=== PATIENT | male | born 1955 | race Caucasian/White ===

== ENCOUNTER → 2022-09-06 | Outpatient (CLI) | payer MEDICARE ==
[2022-09-06 18:31] LABS: African American GFR (CKD) >90 (>60 ml/min/1.73 sqM); Blood Urea Nitrogen 15 mg/dL (9-20); Non-African American GFR(CKD) >90 (>60 ml/min/1.73 sqM)
--- NOTE | 2022-09-07 08:36 | CT ---
EXAMINATION TYPE: CT abdomen wo/w con CT DLP: 969.6 mGycm, Automated exposure control for dose reduction was used. DATE OF EXAM: 09/06/2022 7:02 PM COMPARISON: None. CLINICAL INDICATION:Male, 66 years old with history of D41.12 left renal mass, D49.59 mass gu organ; left renal mass TECHNIQUE: Axial CT of the abdomen and pelvis. Sagittal and coronal reformats were created on a [employer] workstation. Contrast used:100ML mL of Isovue 300 with IV Contrast, Oral contrast used: with Oral Contrast FINDINGS: LOWER CHEST: Unremarkable ABDOMEN LIVER: Unremarkable GALLBLADDER AND BILE DUCTS: Unremarkable cholelithiasis. PANCREAS: Unremarkable. SPLEEN: Unremarkable. ADRENAL GLANDS: Unremarkable. KIDNEYS AND URETERS: The right kidney is without evidence for hydronephrosis, renal calculus or mass. The left kidney demonstrates a heterogenous enhancing mass measuring 2.6 x 2.3 x 2.3 cm which is less than 50% exophytic less approximate 8 mm from the renal calyx and the anterior location above the pl eural line. Note is made of the left kidney superior pole is rotated anteriorly due to the large jb l cyst measuring up to 14.6 x 11.9 cm with mural enhancing soft tissue measuring 6 mm superiorly. The re is no evidence of hydronephrosis or renal calculus. STOMACH AND BOWEL: No evidence of bowel obstruction. PERITONEUM: No evidence of pneumoperitoneum or free fluid. VASCULATURE: No evidence of aortic aneurysm. Atherosclerosis of the arterial vasculature. MUSCULOSKELETAL: No acute osseous abnormalities LYMPH NODES: No gross evidence for lymphadenopathy. SOFT TISSUE/ABDOMINAL WALL: Unremarkable IMPRESSION: 1. Left superior pole 2.6 cm renal cortical mass concerning for renal cell carcinoma until proven ot victorina. RENAL Nephrometry Score: 5a. 2. Left large renal cyst measuring up to 14.6 cm with 6 mm soft tissue enhancing nodule. Findings co ncerning for neoplasm until proven otherwise. Attention on follow-up imaging.
== END | disposition home or self-care (01) ==
LOC: RADCTMAIN 17:45
PROVIDERS: ATTEND Urology
DX: D41.12 Neoplasm of uncertain behavior of left renal pelvis (principal); N28.1 Cyst of kidney, acquired
CPT/HCPCS: 82565; 84520; 74170; 36415; Q9967 ×2

== ENCOUNTER → 2022-10-08 | Outpatient (CLI) | payer MEDICARE ==
--- NOTE | 2022-10-08 16:26 | MR ---
EXAMINATION TYPE: MR kidney wo/w con DATE OF EXAM: 10/08/2022 COMPARISON: CT abdomen and pelvis September 06, 2022 HISTORY: Left renal mass. Abnormal CT. CONTRAST: Standard multiplanar, multisequence MRI departmental protocol images were obtained without contrast a nd with 7.5ml mL intravenous Gadavist gadolinium contrast. FINDINGS: Kidneys: Corresponding with most recent CT right kidney shows no worrisome solid or cystic mass. No r ight-sided hydronephrosis. Left kidney redemonstrates large exophytic thin-walled cyst anteriorly fro m the mid to lower pole level extending inferiorly measuring 13.7 x 13.1 x 11.1 cm axial image 33 and coronal image 18. Chest superior to this in the anterior portion of the upper pole left kidney there is ball-shaped partially exophytic 2.0 cm mass of slight T1 hypointensity and slight T2 hyperintensi ty showing heterogeneous postcontrast enhancement worrisome for focal renal cell carcinoma. More conv incing on CT with washout versus remainder of kidney noted. Patent left renal artery is seen. Patent draining renal vein into the IVC is noted. No suspicious local adenopathy. Other: Slight low dense thickening to the left adrenal gland with signal dropout consistent with gal ign lipid rich hyperplasia. Signal dropout in the liver consistent with fatty infiltrative hepatocell ular disease. Tiny dependent gallstone redemonstrated. Spleen and pancreas are normal in size. No abn ormal bowel dilatation. Diverticula in the left and sigmoid colon. Disc space narrowing with endplate changes and spurring at the lumbosacral junction. IMPRESSION: Confirmation of round small slightly exophytic enhancing mass from the anterior portion upper pole le ft kidney worrisome for focal renal cell carcinoma. Advise surgical referral. Consider ablation refer ral due to smaller size and peripheral location.
== END | disposition home or self-care (01) ==
LOC: RADMRIMAIN 13:54
PROVIDERS: ATTEND Urology
DX: D41.02 Neoplasm of uncertain behavior of left kidney (principal)
CPT/HCPCS: 74183; A9585

== ENCOUNTER 2023-01-10 05:34 | Day surgery (SDC) | payer MEDICARE ==
[2023-01-03 12:57] VITALS: BMI 26.1
--- NOTE | 2023-01-08 08:12 | P.HPIHPCON ---
History of Present Illness H&P Date: 01/08/23 Chief Complaint: Left renal mass, left renal cyst This is a 67-year-old male with history of a 2.3 cm left-sided renal mass, 14 cm left-sided. He is having intermittent left flank pain. I reviewed the images with him in detail. Discussed with him mass is concerning for focal renal cell carcinoma. Discussed the large cyst could be contributing to his left flank pain. Option of robotic left partial nephrectomy with cyst decortication was discussed with him in detail. Risk of bleeding, infection, potential conversion to a radical nephrectomy was discussed with him. Discussed risk of injury to nearby organs which includes but not limited to the spleen, pancreas, bowel. Discussed also the potential of cancer recurrence. Discussed with him if there is conversion to radical nephrectomy there is potential of end-stage renal disease and the requirement of short long-term hemodialysis. Risk of anesthesia was also discussed with him in detail Consent for Procedure: I have explained the operation/procedure to the patient, including the risks, benefits, side effects, alternative therapies (including not receiving the proposed treatment or service), the likelihood of the patient achieving his/her goals, and potential recuperation problems for the procedure/sedation/analgesia, as well as any blood products, if indicated. I also explained to the patient the risks, benefits and side effects of the alternatives, as well as the risks related to not receiving the proposed procedure, care, treatment, or services. 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 History of Any Multi-Drug Resistant Organisms: None Reported Past Surgical History: Hernia Repair Past Anesthesia/Blood Transfusion Reactions: No Reported Reaction Past Psychological History: No Psychological Hx Reported Smoking Status: Current every day smoker Past Alcohol Use History: Occasional Additional Past Alcohol Use History / Comment(s): PT IS A RECOVERING ALCOHOLIC, STATES HE DOES OCCASIONALLY RELAPSE Past Drug Use History: None Reported - Past Family History Mother Family Medical History: Coronary Artery Disease (CAD), CVA/TIA, Myocardial Infarction ([place]) Father Family Medical History: Coronary Artery Disease (CAD), CVA/TIA, Myocardial Infarction ([place]) Medications and Allergies Home Medications Medication Instructions Recorded Confirmed Type lisinopriL [Zestril] 10 mg PO BID 03/09/23 03/09/23 History Allergies Allergy/AdvReac Type Severity Reaction Status Date / Time No Known Allergies Allergy Verified 01/03/23 12:23 Surgical - Exam - General no distress, no pain - ENT normal nares, normal mucosa - Respiratory normal expansion, normal respiratory effort - Abdomen Abdomen: soft, non tender Assessment and Plan Assessment: OR for left robotic partial nephrectomy, with cyst decortication
[2023-01-10] MEDS ORDERED: HYDROmorphone 0.5 MG/0.5 ML SYRINGE IVP PRN (06:04)
[2023-01-10] MEDS ORDERED: ONDANSETRON 4 MG/2 ML VIAL IVP ONE (06:04)
[2023-01-10] MEDS ORDERED: MIDAZOLAM 2 MG/2 ML VIAL IV PRN (06:04)
[2023-01-10] MEDS ORDERED: DEXAMETHASONE SOD PHOSPHATE 4 MG/ML 1 ML VIAL IV ONE (06:04)
[2023-01-10] MEDS ORDERED: LIDOCAINE 1% (10MG/ML) FOR IV START INTRADERMA PRN (06:04)
[2023-01-10] MEDS: LACTATED RINGERS 1,000 ML IV SCH ×2 (06:30→12:48)
[2023-01-10] MEDS ORDERED: fentaNYL (PF) 50 MCG/1 ML VIAL IV ONE (07:14)
[2023-01-10] MEDS ORDERED: MIDAZOLAM 2 MG/2 ML VIAL IV ONE (07:14)
[2023-01-10] MEDS ORDERED: MIDAZOLAM 2 MG/2 ML VIAL ONE (07:35)
[2023-01-10] MEDS ORDERED: ROPIVACAINE 5 MG/ML 30 ML VIAL ONE (07:35)
[2023-01-10] MEDS ORDERED: fentaNYL (PF) 50 MCG/ML 2 ML AMP ONE (07:35)
[2023-01-10] MEDS ORDERED: SODIUM CHLORIDE 0.9% 100 ML BAG ONE (07:35)
[2023-01-10] MEDS ORDERED: LIDOCAINE 2% INJ 20 MG/ML (2 ML VIAL) ONE (07:35)
[2023-01-10] MEDS ORDERED: SODIUM CHLORIDE 0.9% (PF) 10 ML VIAL ONE (07:35)
[2023-01-10] MEDS ORDERED: MANNITOL 25% 12.5 GM/50 ML VIAL ONE (07:35)
[2023-01-10] MEDS ORDERED: HYDROmorphone (PF) 1 MG/ML ONE (07:35)
[2023-01-10] MEDS ORDERED: SUCCINYLCHOLINE CHLORIDE 200 MG/10 ML VIAL IV ONE (07:35)
[2023-01-10] MEDS ORDERED: ROCURONIUM 10 MG/ML (5 ML VIAL) IV ONE (07:35)
[2023-01-10] MEDS ORDERED: NEOSTIGMINE 1 MG/ML 10 ML VIAL ONE (07:35)
[2023-01-10] MEDS ORDERED: PROPOFOL 10 MG/ML 20 ML VIAL IV ONE (07:35)
[2023-01-10] MEDS ORDERED: PHENYLEPHRINE-0.9% NACL SYG 1,000 MCG/10 ML SYRINGE ONE (07:35)
[2023-01-10] MEDS ORDERED: ceFAZolin 1,000 MG VIAL ONE (07:35)
[2023-01-10] MEDS ORDERED: GLYCOPYRROLATE 0.2 MG/ML 2 ML VIAL ONE (07:35)
[2023-01-10] MEDS ORDERED: HYDROmorphone 1 MG/ML 1 ML SYRINGE IVP PRN (07:56)
[2023-01-10] MEDS ORDERED: HEPARIN SODIUM,PORCINE/PF 5,000 UNIT/0.5 ML SYRINGE SQ SCH (08:00)
[2023-01-10] MEDS ORDERED: BUPIVACAINE (PF) 0.5% 30 ML VIAL SQ ONE ×2 (08:55→12:08)
--- NOTE | 2023-01-10 10:27 | P.ANPRN ---
Procedure Note - Anesthesia - Nerve Block Performed Bilateral Erector Spinae Single Time Out Performed: Yes ([id number]) Date of Procedure: 01/10/23 Procedure Start Time: 07:14 Procedure Stop Time: 07:19 Location of Patient: PreOp Indication: Acute Post-Operative Pain, Requested by Surgeon Specifically requested for management of pain by : Oswaldo De Paz Sedation Type: Sedate with meaningful contact maintained Preparation: Sterile Prep Position: Prone Catheter: None Needle Types: Pajunk Needle Gauge: 21 Ultrasound used to visualize needle placement: Yes Ultrasound used to observe medication spread: Yes Injectate: 0.5% Ropivacaine (see comment for volume) (15cc +10cc nacl pf each side) Blood Aspirated: No Pain Paresthesia on Injection Noted: No Resistance on Injection: Normal Image Stored and Saved: Yes Events: Uneventful and Well Tolerated
[2023-01-10] MEDS ORDERED: LACTATED RINGERS 1,000 ML IV ONE (10:50)
--- NOTE | 2023-01-10 12:37 | P.OP ---
Date of Procedure: 01/10/23 Preoperative Diagnosis: Left renal mass, renal cyst Postoperative Diagnosis: Same Procedure(s) Performed: Left robotic partial nephrectomy, robotic cyst decortication Implants: none Anesthesia: MARGIEA Surgeon: Oswaldo De Paz Manager Fashion #1: Shannan Whipple Estimated Blood Loss (ml): 150 Pathology: other (Left renal cyst, left renal mass,) Condition: stable Disposition: PACU Indications for Procedure: This is a 67-year-old male with history of a 2.3 cm left-sided renal mass, 14 cm left-sided renal cyst. He is having intermittent left flank pain. I reviewed the images with him in detail. Discussed with him mass is concerning for focal renal cell carcinoma. Discussed the large cyst could be contributing to his left flank pain. Option of robotic left partial nephrectomy with cyst decortication was discussed with him in detail. Risk of bleeding, infection, potential conversion to a radical nephrectomy was discussed with him. Discussed risk of injury to nearby organs which includes but not limited to the spleen, pa ncreas, bowel. Discussed also the potential of cancer recurrence. Discussed with him if there is conversion to radical nephrectomy there is potential of end-stage renal disease and the requirement of short long-term hemodialysis. Risk of anesthesia was also discussed with him in detail Operative Findings: Left partially endophytic renal mass, large cyst, with a small nodule within the cyst wall, nodule sent for frozen section came back as clear cell renal cell carcinoma Description of Procedure: The patient was taken to the operating room . General anesthesia was induced. He was prepped and draped in sterile fashion, she was placed in modified flank position . All pressure points were padded. The abdominal insufflation was achieved with the Veress needle. A 8 mm camera port was placed. Robotic trocars and events and promotions assistant ports were placed under direct vision. The robot was docked into place. The colon was mobilized medially by incising along the white line of Toldt. Next the spleen and the pancrease were mobilized. Once the bowel, spleen and pancreas were mobilized. At this time the gonadal vessel was visualized. Once the gonadal vessel and ureter was visualized , next after the psoas plane was developed the ureter and gonadal vessel was retracted anteriorly off the psoas muscle. Dissection proceeded cranially towards the renal hilum. The upper pole attachments were dissected. Care was taken to safely mobilize the kidney free of all visceral structures.The renal vessels were dissected. The renal artery and the vein was dissected in preparation for clamping. Next attention was carried to the renal cyst. The cyst wall was dissected off of the remaining Gerota's fat. Next a small incision was made in the cyst, and the fluid was drained using a suction, insuring that of the fluid was not spilled. At this point the incision was further increased in size. At this time evaluation of the inner part of the cyst showed a 0.5 cm nodule along the superior portion of the cyst. At this time the nodule was excised and sent for frozen, this came back as clear cell renal cell carcinoma. Given this finding decision was made to completely remove the cyst including the portion of the cyst that adherent to the renal parenchyma. At this time attention was carried to the renal cell mass. The gerota fat was excised off of the mass and the mass edges was clearly define. Next Manitol was administered. The renal artery was clamped using 2 bulldogs. After clamping the renal artery the tumor was excised sharply with adequate margin, and cautery was used in areas of bleeding. Next attention was then carried to the cyst the cyst was completely excised off of the remaining renal parenchyma with adequate margin. At this time both of the mass and the cyst were placed in the Endo Catch bag. Next the defect was closed in 2 layers using 30V lock for the inner layer, 20V lock in interrupted fashion for the outer layer. Sliding clip technique was used. Next the clamps were removed, total clamp time was 33 minutes . there was no evidence of bleeding from the defect. Hemostatic agents were applied. Next Gerota's fat was closed over the tumor defect, A RACHANA drain was placed through the lower robotic trocor incision. The robot was then de-docked and the specimen was then removed by extending the events and promotions assistant port. Fascia was closed with one layer using #1 PDS. Skin was closed with subcuticular sutures and dermabond. The patient was awoken from general anesthesia in stable condition. all counts were correct Please refer to the final pathology report for final diagnosis
[2023-01-10] MEDS: D5-0.45% NACL WITH KCL 20MEQ/L 1,000 ML IV SCH ×2 (14:21→22:21)
[2023-01-10] MEDS: KETOROLAC 15 MG/ML 1 ML VIAL IVP SCH ×3 (14:21→23:44)
[2023-01-10] MEDS: lisinopriL 10 MG TAB PO SCH ×2 (14:28→23:45)
[2023-01-11] MEDS: D5-0.45% NACL WITH KCL 20MEQ/L 1,000 ML IV SCH (05:23)
[2023-01-11] MEDS: KETOROLAC 15 MG/ML 1 ML VIAL IVP SCH ×2 (05:24→11:36)
[2023-01-11] MEDS: lisinopriL 10 MG TAB PO SCH (08:16)
[2023-01-11 08:50] VITALS: RESP 20
[2023-01-11 10:04] LABS: African American GFR (CKD) 101.4 (60.0-200.0); Anion Gap 8.3 mmol/L (10.00-18.00); BUN/Creat Ratio 13.89 Ratio (12.00-20.00); Blood Urea Nitrogen 12.5 mg/dL (9.0-27.0); Calcium 8.6 mg/dL (8.7-10.3); Carbon Dioxide 22.7 mmol/L (20.0-27.5); Non-African American GFR(CKD) 87.5 (60.0-200.0); Potassium 4.4 mmol/L (3.5-5.5)
[2023-01-11 10:30] LABS: Basophils # (A) 0.02 X 10*3/uL (0.00-0.10); Basophils % (A) 0.2 %; Eosinophils # (A) 0.01 X 10*3/uL (0.04-0.35); Eosinophils % (A) 0.1 %; HCT 36.4 % (39.6-50.0); HGB 12.4 g/dL (13.0-17.0); Immature Grans, Automated 0.3 %; Lymphocytes % (A) 16.3 %; MCH 33.1 pg (27.0-32.0); MCHC 34.1 g/dL (32.0-37.0); MCV 97.1 fL (80.0-97.0); Monocytes # (A) 1.08 X 10*3/uL (0.20-1.00); Monocytes % (A) 11.8 %; NRBC Per 100 WBC 0 /100 WBCS (0.0-0.0); Neutrophils # (A) 6.55 X 10*3/uL (1.80-7.70); Neutrophils % (A) 71.3 %; Platelet Count 142 X 10*3/uL (140-440); RBC 3.75 X 10*6/uL (4.40-5.60); RDW 13.4 % (11.5-14.5); WBC 9.19 X 10*3/uL (4.50-10.00)
[2023-01-11 12:07] VITALS: BP 166/84; PULSE 78; TEMP 98.3
--- NOTE | 2023-01-11 14:11 | P.DS ---
Providers Expected date of discharge: 01/11/23 Attending physician: Oswaldo De Paz MD Primary care physician: Cesar Cloud MD - Discharge Diagnosis(es) (1) Left renal mass Current Visit: Yes Status: Acute (2) Renal cyst, left Current Visit: Yes Status: Acute Hospital Course: This is a 67-year-old male with history of a 2.3 cm left-sided renal mass, concerning for focal renal cell carcinoma, and a14 cm left-sided renal cyst. On 01/10/23 he underwent a left robotic partial nephrectomy, robotic cyst decortication with Dr. De Paz. Operative findings incluse a left partially endophytic renal mass, large cyst, with a small nodule within the cyst wall, nodule sent for frozen section which came back as clear cell renal cell carcinoma. The patient tolerated the procedure well and was sent to the recovery room in good condition. POD #1 the patient reports some mild pain, but over all his pain is well controlled. He is tolerating a regular diet. He is afebrile and his vital signs are stable. His Azar catheter was draining clear yellow urine. It was removed and he is able to void without difficulty. some hematuria noted by the RN. Laparoscopic abdominal incisions open to air and CDI. Lower abdominal RACHANA drain with minimal sero/sang drainage was also removed. He is to follow up with Dr. De Paz in one week. Impression and plan of care have been directed as dictated by the signing physician. Amelia Willson nurse practitioner acting as scribe for signing physician. Amelia Willson [facility] Palliative Care/Urology [facility] [address] Email: [email or web address] I personally performed and participated in the history, physical, the decision making, I agree with the assessment and plan of SKEIN WASHER Patient Condition at Discharge: Good Plan - Discharge Summary Discharge Rx Participant: No New Discharge Prescriptions: New HYDROcodone/APAP 5-325MG [Mellen 5-325] 1 tab PO Q6HR PRN 3 Days #12 tab PRN Reason: Pain Ketorolac [Toradol] 10 mg PO Q6HR PRN #12 tab PRN Reason: Pain Continue lisinopriL [Zestril] 10 mg PO BID Discharge Medication List lisinopriL [Zestril] 10 mg PO BID 01/03/23 [History] HYDROcodone/APAP 5-325MG [Mellen 5-325] 1 tab PO Q6HR PRN 3 Days #12 tab 01/11/23 [Rx] Ketorolac [Toradol] 10 mg PO Q6HR PRN #12 tab 01/11/23 [Rx] Follow up Appointment(s)/Referral(s): Oswaldo De Paz MD [STAFF PHYSICIAN] - 1 Week (The office is at lunch will call when they are back.) Patient Instructions/Handouts: Laparoscopic Partial Nephrectomy (DC) Activity/Diet/Wound Care/Special Instructions: - No heavy lifting, straining, or strenuous activity - Take pain medication as prescribed for discomfort - You may shower, no tub baths Discharge Disposition: HOME SELF-CARE
== END 2023-01-11 15:01 | disposition home or self-care (01) ==
LOC: OR 05:34 → 5NMEDONC 12:34 → OR 01-11 15:01
PROVIDERS: ATTEND Urology
DX: C64.2 Malignant neoplasm of left kidney, except renal pelvis (principal); N28.1 Cyst of kidney, acquired; G89.18 Other acute postprocedural pain; I10 Essential (primary) hypertension; F17.200 Nicotine dependence, unspecified, uncomplicated; F10.20 Alcohol dependence, uncomplicated; Z79.899 Other long term (current) drug therapy; G47.30 Sleep apnea, unspecified; N42.9 Disorder of prostate, unspecified; Z99.89 Dependence on other enabling machines and devices; Z82.49 Family history of ischemic heart disease and other diseases of the circulatory system; Z82.3 Family history of stroke; Z98.890 Other specified postprocedural states
CPT/HCPCS: 50543; 50541; 64999; 76942; 80048; 85025; 88342; 88331; 88307; C1762; J2250; J0330; J1100; J2710; J0690 ×2; J2405; J2150; J3010 ×2; J1170 ×2; J2795; J1885 ×2; J2370; J2704; J2001; 86850; 86900; 86901

== ENCOUNTER → 2024-09-18 | Outpatient (CLI) | payer MEDICARE ==
[2024-09-18 13:45] LABS: African American GFR (CKD) >90 (>60 ml/min/1.73 sqM); Blood Urea Nitrogen 17 mg/dL (9-20); Non-African American GFR(CKD) >90 (>60 ml/min/1.73 sqM)
--- NOTE | 2024-09-18 13:56 | XR ---
EXAMINATION TYPE: XR chest 2V DATE OF EXAM: 09/18/2024 1:11 PM COMPARISON: None CLINICAL INDICATION: Male, 68 years old with history of C64.2 MALIGNANT NEOPLASM OF LEFT KIDNEY, EXCE PT RE; [facility] TECHNIQUE: XR chest 2V Frontal and lateral views of the chest. FINDINGS: Lungs/Pleura: There is flattening of the diaphragm with increased lucency of the lungs. No evidence o f pneumothorax, pleural effusion or focal consolidation. Pulmonary vascularity: Unremarkable. Heart/mediastinum: Cardiomediastinal silhouette is unremarkable. Musculoskeletal: No acute osseous pathology. Other findings: None Lines/Tubes: IMPRESSION: 1. No acute cardiopulmonary disease process. 2. COPD changes. [facility], , 09/18/2024 1:54 PM
--- NOTE | 2024-09-18 14:29 | CT ---
EXAMINATION TYPE: CT abdomen wo/w con DATE OF EXAM: 09/18/2024 COMPARISON: 09/06/2022 CLINICAL INDICATION: Male, 68 years old with history of C64.2 MALIGNANT NEOPLASM OF LEFT KIDNEY, EXCE PT RE; [facility], h/o renal cysts, had them removed f/u TECHNIQUE: Performed with Oral Contrast and with IV Contrast, patient injected with 100 mL of Isovue 300. CT DLP: [address] CTDI: mGy Automated exposure control for dose reduction was used. FINDINGS: There is a stable 4 to 5 mm groundglass nodule in the right lung base medially otherwise the lung bas es are clear. There is a single small gallstone. There is no focal mass or organomegaly involving liver, pancreas, spleen or adrenal glands. The left adrenal gland is stable and mildly nodular. There is a cortical defect of the lower pole left kidney presumably for ablation or surgical removal of the previously described solid renal mass. In its place is an ill-defined 2.6 x 1.4 cm fluid colle ction which is likely postsurgical in nature. Short-term follow-up is recommended to exclude residual malignancy. The right kidney is normal. There is no renal calcification or hydronephrosis. Abdominal aorta is normal in caliber. No retroperitoneal adenopathy The bowel loops are normal in caliber and there is no dilatation or obstruction. No inflammatory younger ges are identified in the bowel wall and mesentery. There is no free intraperitoneal air or fluid. No focal osseous lesions are seen. IMPRESSION: 1. Cortical irregularity and fluid collection in the inferior pole of left kidney presumably post ayo atment in nature. Residual neoplasm cannot be entirely excluded and continued follow-up is recommende d. 2. Cholelithiasis [facility], , 09/18/2024 2:27 PM
== END | disposition home or self-care (01) ==
LOC: RADCTMAIN 12:42
PROVIDERS: ATTEND Urology
DX: C64.2 Malignant neoplasm of left kidney, except renal pelvis (principal); K80.20 Calculus of gallbladder without cholecystitis without obstruction; J44.9 Chronic obstructive pulmonary disease, unspecified; Z85.528 Personal history of other malignant neoplasm of kidney
CPT/HCPCS: 82565; 84520; 71046; 74170; 36415; Q9967